=== PATIENT | male | born 1970 | race Caucasian/White ===

== ENCOUNTER → 2021-01-31 | Outpatient (CLI) | payer SELFPAY ==
--- NOTE | 2021-02-01 07:18 | US ---
EXAMINATION TYPE: US thyroid st tissue head/neck DATE OF EXAM: 01/31/2021 COMPARISON: NONE CLINICAL HISTORY: R22.1 localized swelling of neck. Lump right side of neck. GLAND SIZE: Right Lobe: 5.0 x 3.1 x 4.4 cm Overall Parenchyma: heterogenous Left Lobe: 4.8 x 1.8 x 1.4 cm Overall Parenchyma: homogeneous Isthmus Thickness: .6 cm NODULES RIGHT: # of nodules measured on right: 1 1. 4.8 X 1.8 x 1.4 cm, mid mid, solid or almost completely solid, hypoechoic nodule, which is wider than tall, with smooth margins, without echogenic foci. Prior size: No prior LEFT: # of nodules measured on left: 0 ISTHMUS: # of nodules measured in the isthmus: 0 Hypoechoic area seen left lateral neck measuring 1.5 x .4 x 1.2 cm. IMPRESSION: 4.8 cm solid right thyroid nodule. 2017 ACR TI-RADS LEVEL: TR-RADS 4 - Moderately Suspicious: Follow if > 1 cm, FNA if > 1.5 cm *Highest TI-RADS level nodule reported
== END | disposition home or self-care (01) ==
LOC: RADUSWWP 13:31
PROVIDERS: ATTEND Family Medicine
DX: E04.1 Nontoxic single thyroid nodule (principal)
CPT/HCPCS: 76536

== ENCOUNTER 2021-03-05 10:31 | Day surgery (SDC) | payer SELFPAY ==
[2021-03-04 09:45] VITALS: BMI 34.8
[~2021-03-05 10:31] MED LIST: LACTATED RINGERS 1,000 ML IV SCH
[2021-03-05 11:13] VITALS: RESP 16; TEMP 97.8
[2021-03-05] MEDS ORDERED: LIDOCAINE 1% (10MG/ML) FOR IV START INTRADERMA ONE (11:23)
[2021-03-05] MEDS ORDERED: PROPOFOL 10 MG/ML 20 ML VIAL IV ONE (11:40)
--- NOTE | 2021-03-05 12:02 | P.PCN ---
Date of Procedure: 03/05/21 Description of Procedure: BRIEF HISTORY: Patient is a 51-year-old male presenting for outpatient colonoscopy for change in bowel habits. No family history of colon cancer. No prior colonoscopy. Patient reports that he has been having some constipation with intermittent blood per rectum. PROCEDURE PERFORMED: Colonoscopy with polypectomy. PREOPERATIVE DIAGNOSIS: Change in bowel habits, no prior colonoscopy. ESTIMATED BLOOD LOSS: Minimal. IV sedation per Anesthesia. PROCEDURE: After informed consent was obtained, the patient, was brought into the endoscopy unit. IV sedation was administered by Anesthesia under continuous monitoring. Digital rectal examination was normal. Initially the Olympus CF-190 flexible video colonoscope was then inserted in the rectum, gradually advanced into the cecum without any difficulty. Careful examination was performed as the scope was gradually being withdrawn. Ileocecal valve and the appendiceal orifice were visualized and appeared normal. Prep was excellent. Mucosa of the cecum, ascending colon, transverse colon, descending colon, sigmoid colon, and rectum appeared normal, with 1 diminutive 1 mm cecal polyp removed with cold forcep polypectomy. Retroflexion was performed in the rectum and no lesions were seen, low-grade internal hemorrhoids seen. The patient tolerated the procedure well. IMPRESSION: Diminutive cecal polyp removed with cold forceps. Internal hemorrhoids. RECOMMENDATIONS: Findings of this examination were discussed with the patient and his family. Okay to resume diet. Okay to resume medications. Recommend a trial of Metamucil daily or OTC MiraLAX daily for constipation. Repeat colonoscopy in 7 years for colon polyp pending pathology, if hyperplastic polyp is identified then 10 year screening interval.
[2021-03-05 12:20] VITALS: BP 128/81; PULSE 73
== END 2021-03-05 13:05 | disposition home or self-care (01) ==
LOC: ORWHC2ENDO 10:31
PROVIDERS: ATTEND Internal Medicine
DX: Z90.89 Acquired absence of other organs (principal); Z98.890 Other specified postprocedural states; K64.8 Other hemorrhoids; K62.5 Hemorrhage of anus and rectum
CPT/HCPCS: 88305; 45380; J2704

== ENCOUNTER → 2021-05-21 | Outpatient (CLI) | payer SELFPAY ==
--- NOTE | 2021-05-21 16:51 | CT ---
EXAMINATION TYPE: CT soft tissue neck w con DATE OF EXAM: 05/21/2021 COMPARISON: None HISTORY: Right side neck lump-nontoxic single thyroid nodule CT DLP: 675.8 mGycm CONTRAST: Patient injected with 100 mL of Isovue 300. TECHNIQUE: Axial images at 3 mm thick sections. Reconstructed images in the coronal plane and sagitt al plane are reviewed. FINDINGS: Limited CT sections are obtained the lung apices. The lung apices appear clear. CT neck: The torus tubarius and fossa of Rosenmuller are normal. Gas Generator Operator spaces are normal. Para nasal sinuses and mastoid air cells are clear. Parotid glands appear normal and symmetrical. Submandibular glands, are normal. Parapharyngeal spac es are normal. No suspicious adenopathy is evident. The hypopharynx appears within normal limits. Vocal cord level appear symmetrical. Thyroid is enlarged. The right lobe thyroid is markedly enlarged and appears heterogenous. This area corresponds to the BB marking the palpable abnormality. This was identified on thyroid ultrasound . No suspicious acute osseous abnormality is evident. IMPRESSIONS: 1. The palpable abnormality corresponds to the thyroid nodule identified on prior ultrasound. If this is not been biopsied, biopsy is recommended.
== END | disposition home or self-care (01) ==
LOC: RADCTMAIN 07:31
PROVIDERS: ATTEND Otolaryngology
DX: E04.1 Nontoxic single thyroid nodule (principal)
CPT/HCPCS: 70491; Q9967

== ENCOUNTER → 2021-07-04 | Outpatient (CLI) | payer SELFPAY | END | disposition home or self-care (01) | LOC: LABWHC1 09:45 | PROVIDERS: ATTEND Otolaryngology | DX: Z01.818 Encounter for other preprocedural examination (principal) | CPT/HCPCS: U0003; C9803; U0005 ==